=== PATIENT | female | born 1995 | race Caucasian/White ===

== ENCOUNTER → 2019-11-25 11:46 | Outpatient (CLI) | payer BC, SELFPAY ==
--- NOTE | ~2019-11-25 | XR_ITS ---
XR finger 1st RT min 2V DATE: 11/25/2019 12:11 INDICATION: Right thumb pain TECHNIQUE: 3 views COMPARISON: None FINDINGS: No fracture or dislocation, periosteal reaction or bone destruction. IMPRESSION: Negative Reviewed, dictated and finalized at location B. UP WORKER IMPRESSION: Negative
== END ==
PROVIDERS: PCP Physician Assistant; Visit Provider Physician Assistant
DX: M79.644 Pain in right finger(s) (principal)
CPT/HCPCS: 73140

== ENCOUNTER 2021-03-16 15:45 | Outpatient (RCR) | payer BC, SELFPAY ==
[2021-03-16 15:29] VITALS: BMI 26.8
== END 2021-06-05 11:29 | disposition home or self-care (01) ==
LOC: ANHDMC 15:45
PROVIDERS: PCP Family Medicine; Visit Provider Obstetrics & Gynecology
DX: O24.319 Unspecified pre-existing diabetes mellitus in pregnancy, unspecified trimester (principal); Z71.3 Dietary counseling and surveillance; Z71.89 Other specified counseling
CPT/HCPCS: 97802; G0108

== ENCOUNTER 2021-06-01 04:27 | Inpatient (IN) | payer BC, SELFPAY ==
[2021-06-01] VITALS (106 sets, daily range): BP systolic 89–135; BP diastolic 53–93; PULSE 53–289; RESP 18; TEMP 36.6–36.9; O2SAT 91–100; BMI 26.6
--- NOTE | 2021-06-01 04:49 | LDADM ---
This patient, Blossom Robles, was admitted to Labor/Delivery/Recovery 105 on 06/01/21 at 04:27. Plans for labor, pain management and were discussed with patient. Patient/family oriented to hospital policies and general routines including ID bracelet, bed and alarms, visiting hours, pain management, procedures, bathroom and other care routines, personal items, smoking policy, room service/diet and guest tray routines, security routines, and visiting hours. Patient/Family are encouraged to report perceived risks to care and to ask questions if they do not understand what they are told or what they should do. See OBIX for further documentation.
[2021-06-01 04:59] LABS: Basophils Percent Auto 0.2 % (0.2-1.2); Eosinophils Absolute Auto 0.1 K/mm3 (0-0.3); Eosinophils Percent Auto 0.7 % (0-4.4); Hematocrit 40.1 % (37.0-47.0); Hemoglobin 13.2 g/dL (12.0-15.0); Immature Granulocyte Absolute 0.05 K/mm3 (0.00-0.031); Immature Granulocyte Percent A 0.5 % (0-0.5); Lymphocytes Absolute Auto 2.17 K/mm3 (0.9-3.2); Lymphocytes Percent Auto 20.2 % (18.3-44.2); Mean Corpuscular HGB Conc 32.9 g/dl (32-36); Mean Corpuscular Hemoglobin 29.2 pg (26-34); Mean Corpuscular Volume 88.7 fl (80-100); Mean Platelet Volume 11.4 fl (7.4-10.4); Monocytes Absolute Auto 0.5 K/mm3 (0.1-0.6); Neutrophils Absolute Auto 7.9 K/mm3 (1.3-6.7); Neutrophils Percent Auto 73.4 % (45.5-73.1); Platelet Count Result 185 k/mm3 (150-375); Red Blood Count 4.52 M/mm3 (4.2-5.4); Red Cell Distribution Width 13.5 % (11.5-14.5); White Blood Count 10.8 K/mm3 (4.5-10.0)
[2021-06-01 05:04] LABS: Glucose Point of Care 85 mg/dl (65-105)
[2021-06-01] MEDS: OXYTOCIN 30 UNITS/NS 500 ML 30 UNITS/500 ML BAG 6 UNITS IV CONT (05:50)
[2021-06-01] MEDS: LACTATED RINGERS 1,000 ML 125 ML IV CONT ×3 (05:51→09:45)
--- NOTE | 2021-06-01 06:06 | PM.IMHP ---
H&P: HPI History of Present Illness Date/Time: 06/01/21 06:06 25-year-old 1 para 0 whose last menstrual period was 08/13/2020, EDC is 05/30 21, confirmed by 11 week ultrasound presents at term in active labor. She had an abnormal diabetic screen at 1:57 a.m. and was 2/4 abnormal was on her diabetic screen however she remained with excellent sugars with diet control. Chief Complaint: labor at term Review of Systems Review of Systems: All systems reviewed & are unremarkable except as noted in HPI and below PMFSH Family History Family History Mother Depression Grandparent Family history of malignant neoplasm of breast Social History Social History Smoking status: Never smoker Alcohol intake: never Substance use: never Gender identity (if verbalized by the patient): Female Spiritual care concerns: No Meds Home Medications and Allergies Home Medications Medication Instructions Recorded Confirmed Type venlafaxine 75 mg capsule,extended 75 mg PO DAILY #30 cap 03/29/21 05/04/21 Rx release 24 hr PNV cmb#95-ferrous fumarate-FA 1 tablet PO DAILY 05/04/21 05/04/21 History [] Allergies Allergy/AdvReac Type Severity Reaction Status Date / Time No Known Allergies Allergy Verified 03/21/21 14:40 Vital Signs Vital Signs - 24 hr 06/01/21 05:55 06/01/21 06:01 Pulse Rate 64 63 Blood Pressure 107/65 99/64 L Exam Const: General: no acute distress Eyes: General: appearance normal, both eyes and all related structures Neck: Neck: supple and no JVD Thyroid: thyroid normal Resp: Effort & Inspection: normal respiratory effort Auscultation: clear to auscultation bilaterally Cardio: Rate: regular rate Rhythm: regular rhythm GI: Inspection: non-distended GI Palp: Yes Soft to palpation, No Tenderness to palpation present (GI) and No Guarding due to palpation present (GI) Auscultation: normal bowel sounds : External Female Exam: normal external appearance Speculum Exam - Vagina: normal appearance of the vagina Speculum Exam - Cervix: normal appearance of the cervix ( Cervix 3/60/1. AROM with meconium. FHTs reassuring) Skin: General skin exam: no rashes or lesions noted Extrem: General: normal to inspection and no edema Psych: Mental Status: mental status grossly normal Affect: normal affect H&P: Results Labs Labs: Short CBC 06/01/21 Range/Units 04:50 WBC 10.8 H (4.5-10.0) K/mm3 Hgb 13.2 (12.0-15.0) g/dL Hct 40.1 (37.0-47.0) % Plt Count 185 (150-375) k/mm3 Assessment and Plan Additional Plan impression: Term in active labor with meconium fluid Plan: Spontaneous vaginal delivery is expected. She has an epidural candidate. Pediatrics will be made aware of the meconium
[2021-06-01 08:26] LABS: Glucose Point of Care 74 mg/dl (65-105)
[2021-06-01 08:36] LABS: Rapid Plasma Reagin Non-Reactive (NonReactive)
--- NOTE | 2021-06-01 08:49 | WPDANESEPP ---
Anes - Eval Pre Procedure Procedure: labor epidural Date/Time: 06/01/21 08:49 Preop Diagnosis: labor pain Pre Op Diagnosis: IOL Patient Data Age: 25 Gender: F Height: 1.68 m Weight: 75 kg Last Vital Signs Pulse 61 06/01/21 08:46 BP 106/57 L 06/01/21 08:46 Pulse Ox 100 06/01/21 08:45 Allergies Allergy/AdvReac Type Severity Reaction Status Date / Time No Known Allergies Allergy Verified 03/21/21 14:40 Home Medications Medication Instructions Recorded Confirmed Type venlafaxine 75 mg capsule,extended 75 mg PO DAILY #30 cap 03/29/21 05/04/21 Rx release 24 hr PNV cmb#95-ferrous fumarate-FA 1 tablet PO DAILY 05/04/21 05/04/21 History [] Laboratory Tests 06/01/21 06/01/21 06/01/21 04:50 04:50 04:50 WBC 10.8 K/mm3 H K/mm3 (4.5-10.0) RBC 4.52 M/mm3 M/mm3 (4.2-5.4) Hgb 13.2 g/dL g/dL (12.0-15.0) Hct 40.1 % % (37.0-47.0) MCV 88.7 fl fl (80-100) MCH 29.2 pg pg (26-34) MCHC 32.9 g/dl g/dl (32-36) RDW 13.5 % % (11.5-14.5) Plt Count 185 k/mm3 k/mm3 (150-375) MPV 11.4 fl H fl (7.4-10.4) Immature Gran % (Auto) 0.5 % % (0-0.5) Neut % (Auto) 73.4 % H % (45.5-73.1) Lymph % (Auto) 20.2 % % (18.3-44.2) Bent % (Auto) 5.0 % % (2.6-8.5) Eos % (Auto) 0.7 % % (0-4.4) Baso % (Auto) 0.2 % % (0.2-1.2) Lymph # (Auto) 2.17 K/mm3 K/mm3 (0.9-3.2) Bent # (Auto) 0.5 K/mm3 K/mm3 (0.1-0.6) Eos # (Auto) 0.1 K/mm3 K/mm3 (0-0.3) Baso # (Auto) 0.0 K/mm3 K/mm3 (0.0-0.1) Abs Immat Gran (auto) 0.05 K/mm3 H K/mm3 (0.00-0.031) Absolute Neuts (auto) 7.9 K/mm3 H K/mm3 (1.3-6.7) Absolute Nucleated RBC 0.0 K/mm3 K/mm3 (0.0-0.012) Nucleated RBC % 0.0 % % (0.0-0.2) POC Capillary Glucose RPR Non-reactive (NonReactive) Blood Type A Positive Antibody Screen Negative 06/01/21 06/01/21 04:58 08:05 WBC RBC Hgb Hct MCV MCH MCHC RDW Plt Count MPV Immature Gran % (Auto) Neut % (Auto) Lymph % (Auto) Bent % (Auto) Eos % (Auto) Baso % (Auto) Lymph # (Auto) Bent # (Auto) Eos # (Auto) Baso # (Auto) Abs Immat Gran (auto) Absolute Neuts (auto) Absolute Nucleated RBC Nucleated RBC % POC Capillary Glucose 85 mg/dl mg/dl 74 mg/dl mg/dl (65-105) (65-105) RPR Blood Type Antibody Screen Patient hx anesthesia problems: none Family hx anesthesia problems: none PMFSH Family History Family History Mother Depression Grandparent Family history of malignant neoplasm of breast Social History Social History Smoking status: Never smoker Alcohol intake: never Substance use: never Gender identity (if verbalized by the patient): Female Spiritual care concerns: No Exam Day of Procedure 06/01/21 08:49 Patient weight: normal Heart: regular rate and rhythm Lungs: normal air movement Airway: Mallampati scale class II Neurological: alert and oriented
[2021-06-01 11:16] LABS: Glucose Point of Care 74 mg/dl (65-105)
--- NOTE | 2021-06-01 13:04 | P.PCNOB_ITS ---
OB - Delivery Note Procedure Delivery date: 06/01/21 Intrapartal events: None Induction method: none Delivery augmentation: rupture of membranes and pitocin Delivery monitor: external FHT Route of delivery: Episiotomy description: None Laceration Description: None Specimen: No Quantitative Blood Loss (ml): 158 Anesthesia type: Epidural Disposition: floor [place] Baby Date of : 06/01/21 Time of : 12:52 Weeks of gestation at delivery: 40 Infant gender: Male Weight (pounds): 7 Weight (ounces): 10 presentation: vertex position: Right Occiput Anterior Placenta delivery description: Spontaneous cord vessel description: 3 Vessels score one minute: 9 score five minutes: 9 Narrative: mec fluid/peds present
[2021-06-01] MEDS: OXYTOCIN 30 UNITS/NS 500 ML 30 UNITS/500 ML BAG 125 UNITS IV CONT (13:32)
--- NOTE | 2021-06-01 15:45 | PC.NURSE ---
Patient transferred to post room #284 per wheelchair from labor and delivery. Support person present. Oriented to unit, room, information board, rooming in, admission packet and security measures. Patient verbalizes understanding.
[2021-06-01] MEDS: IBUPROFEN 600 MG TABLET PO (23:51)
[2021-06-01] MEDS: ACETAMINOPHEN 325 MG TABLET 650 MG PO (23:52)
[2021-06-02 03:44] VITALS: BP 115/78; PULSE 61; RESP 18; TEMP 36.6
[2021-06-02 05:19] LABS: Hematocrit 30.4 % (37.0-47.0); Hemoglobin 9.9 g/dL (12.0-15.0)
[2021-06-02 08:05] VITALS: BP 109/64; PULSE 82; RESP 18; TEMP 36.6; O2SAT 98
--- NOTE | 2021-06-02 08:52 | PM.DS ---
DS: Admitting Diagnosis Admitting Diagnosis term iup in labor DS: Summary Hospital Course Hospital Course: The patient was admitted in active labor and underwent spontaneous vaginal delivery. Her hospital course was unremarkable. She remained afebrile. She was up, voiding without difficulty, passing gas, eating regular diet and generally without complaints Time Spent with Patient Time attestation: Total time spent providing and/or coordinating discharge services: Exam Const: General: no acute distress Eyes: General: appearance normal, both eyes and all related structures Neck: Neck: supple and no JVD Thyroid: thyroid normal Resp: Effort & Inspection: normal respiratory effort Auscultation: clear to auscultation bilaterally Cardio: Rate: regular rate Rhythm: regular rhythm GI: Inspection: non-distended GI Palp: Yes Soft to palpation, No Tenderness to palpation present (GI) and No Guarding due to palpation present (GI) Auscultation: normal bowel sounds : General: Yes bladder normal to palpation External Female Exam: normal external appearance Speculum Exam - Vagina: normal vaginal discharge and No vaginal bleeding Speculum Exam - Cervix: nontender Bimanual exam- vagina & uterus: bladder normal to palpation and No Cervical tenderness present OB/external & speculum: No vaginal bleeding Skin: General skin exam: no rashes or lesions noted Extrem: General: normal to inspection and no edema Psych: Mental Status: mental status grossly normal Affect: normal affect DS: Data Data Completed and Pending Labs on day of discharge: Labs from last 24 hours 06/02/21 06/01/21 03:27 11:05 Hgb 9.9 L D Hct 30.4 L POC Capillary Glucose 74 Discharge Plan Discharge Attending physician on discharge: Zane Welch Discharging Clinician: Zane Welch Patient Disposition: Home, Self-Care Activity: may shower, no straining and pelvic rest Diet: heart healthy Wound Care Instructions: follow printed instructions Discharge Instructions: Education: Mom and Baby Guide Given to: Mother Follow-Up: Call your delivering provider's office for an appointment to be seen in: 6 Weeks Mom and baby should come to the [facility] for the follow-up appointment. Appointment Date/Time: June 05, 2021 at 9:00 am What to expect at your follow-up visit: Blood Pressure Check Physical Assessment Call [phone] if you are unable to keep your appointment time. BREAST CARE: * Wear a snug supportive bra. * For engorgement discomfort: Breast Feeding: * Apply warm moist washcloths * Express milk as needed to relieve engorgement * Wear loose clothing Bottle Feeding: * May apply ice packs * For sore nipples: * Identify correct latch-on * Apply warm moist washcloths before and after nursing * Air dry nipples after nursing * May apply Lansinoh cream to nipples EPISIOTOMY/PERINEAL CARE: * Until bleeding stops, use your kj bottle after urinating * Change your pad frequently throughout the day * You may take sitz baths several times a day (fill your bathtub with warm water and soak for 20 minutes.) Do NOT bathe in the water * No tub baths until seen by your physician - You may shower ACTIVITY: * Rest as much as possible. * Do not exercise or lift anything heavier than your baby (such as laundry or other children.) * Avoid stairs or driving as much as possible. * Do not put anything into the vagina. No douching, tampons, or sexual activity until seen by physician. NOTIFY PHYSICIAN IF YOU HAVE ANY QUESTIONS OR IF ANY OF THE FOLLOWING SYMPTOMS OCCUR: * If your vaginal area becomes red, swollen, or more painful than what you have experienced in the hospital. * If your vaginal bleeding becomes foul smelling. * If your vaginal bleeding becomes more heavy than a period or if your bleeding changes from p
[2021-06-02] MEDS: POLYSACCHARIDE IRON COMPLEX 150 MG CAPSULE PO ×2 (09:43→17:47)
[2021-06-02] MEDS: DOCUSATE SODIUM 100 MG CAPSULE PO ×2 (09:43→17:47)
[2021-06-02] MEDS: MULTIVIT/MIN/PREN/FOL AC/IRON TABLET 1 TAB PO (09:43)
[2021-06-02] MEDS: IBUPROFEN 600 MG TABLET PO ×2 (09:44→17:47)
[2021-06-02 11:49] VITALS: BP 115/77; PULSE 82; RESP 16; TEMP 36.6; O2SAT 99
--- NOTE | 2021-06-02 15:17 | WPDANLDPN2 ---
Anes-Prog Note L&D Date/Time: 06/02/21 15:17 Comfortable throughout: labor and delivery Neuraxial method: epidural Epidural/Spinal procedure site: erythematous Neuro status: Neuro function grossly intact. Cardiovascular status: normal Respiratory status: normal Airway patency: baseline Mental status: baseline Post-Op hydration status: normal Vital Signs: Last Vital Signs Temp 36.6 C 06/02/21 11:49 Pulse 82 06/02/21 11:49 Resp 16 06/02/21 11:49 BP 115/77 06/02/21 11:49 Pulse Ox 99 06/02/21 11:49 Pain score (VAS): 10/30 I/O: Intake & Output 06/01/21 06/02/21 06/02/21 23:59 07:59 15:59 Intake Total 500 Balance 500 Post-procedural complaints: none Patient feedback: Patient satisfied with anesthetic care.
[2021-06-02 19:05] VITALS: BP 112/70; PULSE 80; RESP 16; TEMP 36.3; O2SAT 100
--- NOTE | 2021-06-02 19:05 | PC.NURSE ---
Patient viewed the discharge video Mother & Baby Care, The First Two Weeks online. Patient was given the opportunity and encouraged to ask questions. Patient verbalized understanding of information shared and has been given the mother/baby guide for home reference.
--- NOTE | 2021-06-03 08:10 | PM.OBDSVD ---
DS: Admitting Diagnosis Admitting Diagnosis intrauterine at term labor OB - DS: Summary OB Procedures : None OB Procedures Intrapartum: Spontaneous Vag Delivery OB Procedures: : None Status at Discharge Functional status at discharge: independent ambulation Overall status at discharge: patient is back to baseline Time Spent with Patient Time attestation: Total time spent providing and/or coordinating discharge services: Time spent: Less than 30 minutes Exam Const: General: comfortable and no acute distress Resp: Effort & Inspection: normal respiratory effort Auscultation: clear to auscultation bilaterally Cardio: Rate: regular rate GI: GI Palp: Yes Soft to palpation Auscultation: normal bowel sounds Other: Fundus firm below umbilicus Psych: Appearance: grossly normal Mental Status: mental status grossly normal Affect: normal affect Discharge Plan Discharge Attending physician on discharge: Zane Welch Discharging Clinician: Zane Welch Patient Disposition: Home, Self-Care Activity: may shower, no straining and pelvic rest Diet: heart healthy Wound Care Instructions: follow printed instructions Patient Instructions: Antibiotic Form Stand Alone Forms: General Discharge Information Follow-up/Referrals: Zane Welch MD [Physician] - Discharge Medications: New polysaccharide iron complex 150 mg iron Capsule 150 mg PO BIDWM Qty: 60 RF: 0 acetaminophen [Mapap (acetaminophen)] 325 mg Tablet 650 mg PO Q6H PRN (Reason: Mild Pain (1-3) Or Headache) Qty: 30 RF: 0 ibuprofen 600 mg Tablet 600 mg PO Q6H PRN (Reason: Cramping) Qty: 30 RF: 0 Continued PNV cmb#95-ferrous fumarate-FA [] 28 mg iron- 800 mcg Tablet 1 tablet PO DAILY RF: 0 venlafaxine [Effexor XR] 75 mg capsule,extended release 24hr 75 mg PO DAILY Qty: 30 RF: 1 Date of admission: 06/01/21 04:27 Primary Care Provider: Kenneth Pritchard Admitting Provider: Zane Welch Attending physician on admission: Zane Welch Condition: Stable
[2021-06-03 09:13] VITALS: BP 121/83; PULSE 66; RESP 16; TEMP 36.8; O2SAT 100
[2021-06-03] MEDS: POLYSACCHARIDE IRON COMPLEX 150 MG CAPSULE PO (12:22)
[2021-06-03] MEDS: IBUPROFEN 600 MG TABLET PO (12:22)
[2021-06-03] MEDS: DOCUSATE SODIUM 100 MG CAPSULE PO (12:22)
[2021-06-03] MEDS: MULTIVIT/MIN/PREN/FOL AC/IRON TABLET 1 TAB PO (12:22)
[2021-06-03 12:35] VITALS: PULSE 66; RESP 16; O2SAT 100
[2021-06-05 08:43] VITALS: BP 123/83; PULSE 65; RESP 16; TEMP 36.9; O2SAT 100
== END 2021-06-03 13:10 | disposition home or self-care (01) | DRG 807 ==
LOC: ANHLDR 08:49 → ANHOB2 06-02 08:53 → ANHLDR 06-05 11:36 → ANHOB2 06-05 11:36
PROVIDERS: Admitting Provider Obstetrics & Gynecology; PCP Family Medicine; Visit Provider Student in an Organized Health Care Education/Training Program
DX: O24.420 Gestational diabetes mellitus in childbirth, diet controlled (principal); Z37.0 Single live birth; Z3A.40 40 weeks gestation of pregnancy; O77.0 Labor and delivery complicated by meconium in amniotic fluid
CPT/HCPCS: 36415; 82948; 85014; 85018; 85025; 86592; 86850; 86900; 86901; A9270; J2590; J2795; J7120

== ENCOUNTER 2022-12-11 07:33 | Inpatient (IN) | payer BC, SELFPAY ==
[2022-12-11] VITALS (119 sets, daily range): BP systolic 73–171; BP diastolic 20–117; PULSE 54–119; RESP 16; TEMP 36.6–36.8; O2SAT 92–100; BMI 27.7
[2022-12-11] MEDS: LACTATED RINGERS 1,000 ML 125 ML IV CONT ×2 (08:20→08:54)
[2022-12-11 08:27] LABS: Glucose Point of Care 68 mg/dl (65-105)
[2022-12-11 08:30] LABS: Basophils Percent Auto 0.5 % (0.2-1.2); Eosinophils Absolute Auto 0.1 K/mm3 (0-0.3); Eosinophils Percent Auto 0.8 % (0-4.4); Hematocrit 32.2 % (37.0-47.0); Hemoglobin 10.1 g/dL (12.0-15.0); Immature Granulocyte Absolute 0.06 K/mm3 (0.00-0.031); Immature Granulocyte Percent A 0.9 % (0-0.5); Lymphocytes Absolute Auto 1.81 K/mm3 (0.9-3.2); Lymphocytes Percent Auto 27.8 % (18.3-44.2); Mean Corpuscular HGB Conc 31.4 g/dl (32-36); Mean Corpuscular Hemoglobin 25.5 pg (26-34); Mean Corpuscular Volume 81.3 fl (80-100); Mean Platelet Volume 10.4 fl (7.4-10.4); Monocytes Absolute Auto 0.3 K/mm3 (0.1-0.6); Monocytes Percent Auto 4.6 % (2.6-8.5); Neutrophils Absolute Auto 4.3 K/mm3 (1.3-6.7); Neutrophils Percent Auto 65.4 % (45.5-73.1); Platelet Count Result 176 k/mm3 (150-375); Red Blood Count 3.96 M/mm3 (4.2-5.4); Red Cell Distribution Width 14.6 % (11.5-14.5); White Blood Count 6.5 K/mm3 (4.5-10.0)
--- NOTE | 2022-12-11 08:52 | WPDANESEPP ---
Anes - Eval Pre Procedure Procedure: labor pain managment Date/Time: 12/11/22 08:52 Surgeon: Machelle Preop Diagnosis: pain during labor Pre Op Diagnosis: Contractions Patient Data Age: 27 Gender: F Height: 1.68 m Weight: 78 kg Last Vital Signs Pulse 74 12/11/22 08:45 BP 133/94 H 12/11/22 08:45 Pulse Ox 100 12/11/22 08:52 O2 Del Method Room Air 12/11/22 08:29 Allergies Allergy/AdvReac Type Severity Reaction Status Date / Time No Known Allergies Allergy Verified 09/24/22 13:57 Home Medications Medication Instructions Recorded Confirmed Type prenat.vits,jass,fyn-pyjj-zxunf 1 tablet PO DAILY 09/24/22 12/11/22 History venlafaxine 75 mg capsule,extended 75 mg PO DAILY #90 caps 09/24/22 12/11/22 Rx release 24 hr (Effexor XR) Laboratory Tests 12/11/22 12/11/22 12/11/22 08:22 08:22 08:23 WBC 6.5 K/mm3 K/mm3 (4.5-10.0) RBC 3.96 M/mm3 L M/mm3 (4.2-5.4) Hgb 10.1 g/dL L g/dL (12.0-15.0) Hct 32.2 % L % (37.0-47.0) MCV 81.3 fl fl (80-100) MCH 25.5 pg L pg (26-34) MCHC 31.4 g/dl L g/dl (32-36) RDW 14.6 % H % (11.5-14.5) Plt Count 176 k/mm3 k/mm3 (150-375) MPV 10.4 fl fl (7.4-10.4) Immature Gran % (Auto) 0.9 % H % (0-0.5) Neut % (Auto) 65.4 % % (45.5-73.1) Lymph % (Auto) 27.8 % % (18.3-44.2) [place] % (Auto) 4.6 % % (2.6-8.5) Eos % (Auto) 0.8 % % (0-4.4) Baso % (Auto) 0.5 % % (0.2-1.2) Lymph # (Auto) 1.81 K/mm3 K/mm3 (0.9-3.2) [place] # (Auto) 0.3 K/mm3 K/mm3 (0.1-0.6) Eos # (Auto) 0.1 K/mm3 K/mm3 (0-0.3) Baso # (Auto) 0.0 K/mm3 K/mm3 (0.0-0.1) Abs Immat Gran (auto) 0.06 K/mm3 H K/mm3 (0.00-0.031) Absolute Neuts (auto) 4.3 K/mm3 K/mm3 (1.3-6.7) Absolute Nucleated RBC 0.0 K/mm3 K/mm3 (0.0-0.012) Nucleated RBC % 0.0 % % (0.0-0.2) POC Capillary Glucose 68 mg/dl mg/dl (65-105) RPR Pending Patient hx anesthesia problems: none Family hx anesthesia problems: none Prior surgeries: wisdom teeth Results Review: All pre-operative results and documents have been reviewed as part of the pre-operative evaluation. [facility] Family History Family History Mother Depression Grandparent Family history of malignant neoplasm of breast Social History Social History Smoking status: Never smoker Alcohol intake: never Substance use: never Lack of Transportation: No Lack of Food: Never True Current Housing: I Have Housing Concerned About Future Housing: No Difficulty Paying Gas/Electric Bills: No Difficulty Paying for Meds: No Currently Unemployed: No Education: Bachelor's Degree Difficulty w/ Childcare or Family Care: No Gender identity (if verbalized by the patient): Female Spiritual care concerns: No Exam Day of Procedure 12/11/22 08:52
[2022-12-11 10:35] LABS: Rapid Plasma Reagin Non-Reactive (NonReactive)
[2022-12-11 10:56] LABS: Glucose Point of Care 65 mg/dl (65-105)
--- NOTE | 2022-12-11 11:43 | PM.IMHP ---
H&P: HPI History of Present Illness Date/Time: 12/11/22 11:43 Chief Complaint: Active labor at term Narrative: 27-year-old 2 para 1 whose last menstrual period was 04/06/2022, EDC is 12/18/2022, presents at39+ weeks gestation in active labor. She is a gestational diabetic and has been controlled with diet control. She is negative for group B strep. She does take venlafaxine 75mg daily. She spontaneously ruptured after admission PMFSH Family History Family History Mother Depression Grandparent Family history of malignant neoplasm of breast Social History Social History Smoking status: Never smoker Alcohol intake: never Substance use: never Lack of Transportation: No Lack of Food: Never True Current Housing: I Have Housing Concerned About Future Housing: No Difficulty Paying Gas/Electric Bills: No Difficulty Paying for Meds: No Currently Unemployed: No Education: Bachelor's Degree Difficulty w/ Childcare or Family Care: No Gender identity (if verbalized by the patient): Female Spiritual care concerns: No Meds Home Medications and Allergies Home Medications Medication Instructions Recorded Confirmed Type prenat.vits,jass,bso-qpcf-csffq 1 tablet PO DAILY 09/24/22 12/11/22 History venlafaxine 75 mg capsule,extended 75 mg PO DAILY #90 caps 09/24/22 12/11/22 Rx release 24 hr (Effexor XR) Allergies Allergy/AdvReac Type Severity Reaction Status Date / Time No Known Allergies Allergy Verified 09/24/22 13:57 Vital Signs Vital Signs - 24 hr 12/11/22 08:29 12/11/22 08:30 12/11/22 08:45 Pulse Rate 66 74 Blood Pressure 118/73 133/94 H Pulse Oximetry Oxygen Delivery Room Air 12/11/22 08:52 12/11/22 08:57 12/11/22 09:00 Pulse Rate 71 Blood Pressure 135/87 Pulse Oximetry 100 100 Oxygen Delivery 12/11/22 09:02 12/11/22 09:04 12/11/22 09:05 Pulse Rate 69 Blood Pressure 132/83 Pulse Oximetry 100 100 Oxygen Delivery 12/11/22 09:06 12/11/22 09:08 12/11/22 09:10 Pulse Rate 65 84 Blood Pressure 132/83 133/89 Pulse Oximetry 100 Oxygen Delivery 12/11/22 09:11 12/11/22 09:13 12/11/22 09:15 Pulse Rate 64 54 L Blood Pressure 84/45 L 73/40 L Pulse Oximetry 100 Oxygen Delivery 12/11/22 09:16 12/11/22 09:17 12/11/22 09:19 Pulse Rate 57 L 107 H 104 H Blood Pressure 141/101 H 119/74 102/36 L Pulse Oximetry Oxygen Delivery 12/11/22 09:20 12/11/22 09:23 12/11/22 09:24 Pulse Rate 102 H 101 H 97 Blood Pressure 88/54 L 171/117 H 168/100 H Pulse Oximetry 100 Oxygen Delivery 12/11/22 09:25 12/11/22 09:26 12/11/22 09:28 Pulse Rate 101 H 108 H 118 H Blood Pressure 137/78 126/70 144/89 H Pulse Oximetry 98 Oxygen Delivery 12/11/22 09:30 12/11/22 09:31 12/11/22 09:33 Pulse Rate 118 H 114 H Blood Pressure 89/45 L 80/33 L Pulse Oximetry 100 Oxygen Delivery 12/11/22 09:35 12/11/22 09:38 12/11/22 09:40 Pulse Rate 103 H 105 H 98 Blood Pressure 97/42 L 94/29 L 97/66 L Pulse Oximetry 100 100 Oxygen Delivery 12/11/22 09:43 12/11/22 09:45 12/11/22 09:48 Pulse Rate 75 103 H 109 H Blood Pressure 126/67 105/68 92/60 L Pulse Oximetry 100 Oxygen Delivery 12/11/22 09:50 12/11/22 09:53 12/11/22 09:55 Pulse Rate 94 69 74 Blood Pressure 104/66 124/76 130/82 Pulse Oximetry 100 99 Oxygen Delivery 12/11/22 09:58 12/11/22 10:00 12/11/22 10:03 Pulse Rate 81 108 H 94 Blood Pressure 136/84 108/68 110/69 Pulse Oximetry 99 Oxygen Delivery 12/11/22 10:05 12/11/22 10:08 12/11/22 10:10 Pulse Rate 116 H 104 H 90 Blood Pressure 77/44 L 81/46 L 101/60 Pulse Oximetry 92 100 Oxygen Delivery 12/11/22 10:13 12/11/22 10:15 12/11/22 10:20 Pulse Rate 70 90 Blood Pressure 120/75 107/68 Pulse Oximetry 100 100 Oxygen Delivery
[2022-12-11] MEDS: OXYTOCIN 30 UNITS/NS 500 ML 30 UNITS/500 ML BAG 999 UNITS IV CONT (14:44)
--- NOTE | 2022-12-11 15:18 | P.PCNOB_ITS ---
OB - Delivery Note Procedure Delivery date: 12/11/22 Induction method: None Delivery monitor: External FHT and External Uterine Route of delivery: Episiotomy description: None Laceration Description: None Specimen: No Quantitative Blood Loss (ml): 60 Anesthesia type: Epidural Disposition: Floor [place] Baby Date of : 12/11/22 Time of : 15:08 Weeks of gestation at delivery: 39 gender: Male Weight (pounds): 8 Weight (ounces): 12 presentation: vertex position: Right Occiput Anterior Placenta delivery description: Spontaneous Cord Vessel Description: 3 Vessels and Delayed Cord Clamping score one minute: 7 score five minutes: 9
[2022-12-11] MEDS: OXYTOCIN 30 UNITS/NS 500 ML 30 UNITS/500 ML BAG 125 UNITS IV CONT (15:46)
[2022-12-11] MEDS: BENZOCAINE 20% AER SPR (*SP) 56 GM CAN 1 SPRAY TOPICAL (17:34)
[2022-12-11] MEDS: WITCH HAZEL 40 PADS 1 PAD TOPICAL (17:34)
--- NOTE | 2022-12-11 17:40 | PC.NURSE ---
Patient transferred to post room #284 via wheelchair. Support person present. Oriented to unit, room, information board, rooming in, admission packet and security measures. Patient verbalizes understanding.
[2022-12-12] MEDS: ACETAMINOPHEN 325 MG TABLET 650 MG PO (00:32)
[2022-12-12 05:29] LABS: Hematocrit 30.9 % (37.0-47.0); Hemoglobin 9.4 g/dL (12.0-15.0)
[2022-12-12 07:50] VITALS: BP 125/89; PULSE 58; RESP 16; TEMP 36.4; O2SAT 99
--- NOTE | 2022-12-12 07:50 | PM.DS ---
DS: Admitting Diagnosis Discharge Date 12/12/2022 Admitting Diagnosis term /gestational diabetes diet controlled DS: Discharge Diagnosis Discharge Diagnosis (1) Gestational diabetes: Code(s): O24.419 - Gestational diabetes mellitus in , unspecified control Status: Acute (2) Term : Code(s): Z34.90 - Encounter for supervision of normal , unspecified, unspecified trimester Status: Acute DS: Summary Hospital Course Reason for hospitalization: active labor at term Hospital Course: patient was admitted in active labor on 12/11/2022. She underwent spontaneous vaginal delivery with epidural anesthesia. Her hospital course was unremarkable as her sugars remained within normal limits. She was up, voiding without difficulty ambulating, generally without complaints. Time Spent with Patient Time attestation: Total time spent providing and/or coordinating discharge services: Exam Const: General: cooperative, healthy appearing and comfortable Nutritional Appearance: average body habitus Orientation/consciousness: oriented to person, oriented to place and oriented to time Resp: Effort & Inspection: normal respiratory effort Cardio: Rate: regular rate Rhythm: regular rhythm Heart sounds: S1 normal heart sound present and S2 normal heart sound present GI: Inspection: normal to inspection ( Fundus firm below the umbilicus) DS: Data Data Completed and Pending Labs on day of discharge: Labs from last 24 hours 12/12/22 12/11/22 12/11/22 05:16 10:52 08:23 WBC RBC Hgb 9.4 L Hct 30.9 L MCV MCH MCHC RDW Plt Count MPV Immature Gran % (Auto) Neut % (Auto) Lymph % (Auto) [place] % (Auto) Eos % (Auto) Baso % (Auto) Lymph # (Auto) [place] # (Auto) Eos # (Auto) Baso # (Auto) Abs Immat Gran (auto) Absolute Neuts (auto) Absolute Nucleated RBC Nucleated RBC % POC Capillary Glucose 65 68 RPR Blood Type Antibody Screen 12/11/22 12/11/22 12/11/22 08:22 08:22 08:22 WBC 6.5 RBC 3.96 L Hgb 10.1 L Hct 32.2 L MCV 81.3 MCH 25.5 L MCHC 31.4 L RDW 14.6 H Plt Count 176 MPV 10.4 Immature Gran % (Auto) 0.9 H Neut % (Auto) 65.4 Lymph % (Auto) 27.8 [place] % (Auto) 4.6 Eos % (Auto) 0.8 Baso % (Auto) 0.5 Lymph # (Auto) 1.81 [place] # (Auto) 0.3 Eos # (Auto) 0.1 Baso # (Auto) 0.0 Abs Immat Gran (auto) 0.06 H Absolute Neuts (auto) 4.3 Absolute Nucleated RBC 0.0 Nucleated RBC % 0.0 POC Capillary Glucose RPR Non-reactive Blood Type A Positive Antibody Screen Negative Discharge Plan Discharge Attending physician on discharge: Zane Bernal Discharging Clinician: Zane Bernal Patient Disposition: Home, Self-Care Activity: may shower and pelvic rest Diet: heart healthy Wound Care Instructions: follow printed instructions Patient Instructions: Antibiotic Form Stand Alone Forms: General Discharge Information Follow-up/Referrals: Zane Bernal MD [Physician] - Discharge Medications: Continued prenat.vits,jass,[id number] Tablet 1 tablet PO DAILY venlafaxine [Effexor XR] 75 mg capsule,extended release 24hr 75 mg PO DAILY Qty: 90 3RF Date of admission: 12/11/22 07:33 Primary Care Provider: Car Engel Admitting Provider: Zane Bernal Attending physician on admission: Zane Bernal Condition: Stable
--- NOTE | 2022-12-12 07:53 | PM.OBPNVD ---
OB - PN: Subj Subjective Date/time seen: 12/12/22 07:53 Patient comments: no complaints and pain well controlled baby status: doing well and nursing well OB - PN: Obj Data Labs 12/12/22 05:16 Labs: Laboratory Results - last 24 hr 12/11/22 12/11/22 12/11/22 08:22 08:22 08:22 WBC 6.5 RBC 3.96 L Hgb 10.1 L Hct 32.2 L MCV 81.3 MCH 25.5 L MCHC 31.4 L RDW 14.6 H Plt Count 176 MPV 10.4 Immature Gran % (Auto) 0.9 H Neut % (Auto) 65.4 Lymph % (Auto) 27.8 [place] % (Auto) 4.6 Eos % (Auto) 0.8 Baso % (Auto) 0.5 Lymph # (Auto) 1.81 [place] # (Auto) 0.3 Eos # (Auto) 0.1 Baso # (Auto) 0.0 Abs Immat Gran (auto) 0.06 H Absolute Neuts (auto) 4.3 Absolute Nucleated RBC 0.0 Nucleated RBC % 0.0 POC Capillary Glucose RPR Non-reactive Blood Type A Positive Antibody Screen Negative 12/11/22 12/11/22 12/12/22 08:23 10:52 05:16 WBC RBC Hgb 9.4 L Hct 30.9 L MCV MCH MCHC RDW Plt Count MPV Immature Gran % (Auto) Neut % (Auto) Lymph % (Auto) [place] % (Auto) Eos % (Auto) Baso % (Auto) Lymph # (Auto) [place] # (Auto) Eos # (Auto) Baso # (Auto) Abs Immat Gran (auto) Absolute Neuts (auto) Absolute Nucleated RBC Nucleated RBC % POC Capillary Glucose 68 65 RPR Blood Type Antibody Screen OB - PN A/P Plan day: 1 Plan: routine care, discharge home and follow up 6 weeks Time Spent With Patient Time: Total time spent is greater than 50% in coordination of care (as documented) at patient's floor/unit and/or counseling patient: Time with patient: less than 15 minutes Exam Const: General: cooperative, healthy appearing and comfortable Nutritional Appearance: average body habitus Orientation/consciousness: oriented to person, oriented to place and oriented to time Resp: Effort & Inspection: normal respiratory effort Cardio: Rate: regular rate Rhythm: regular rhythm Heart sounds: S1 normal heart sound present and S2 normal heart sound present GI: Inspection: normal to inspection ( fundus firm below the umbilicus)
[2022-12-12] MEDS: IBUPROFEN 600 MG TABLET PO ×2 (08:00→17:50)
[2022-12-12] MEDS: MULTIVIT/MIN/PREN/FOL AC/IRON TABLET 1 TAB PO (08:00)
[2022-12-12] MEDS: DOCUSATE SODIUM 100 MG CAPSULE PO ×2 (08:00→17:50)
[2022-12-12] MEDS: POLYSACCHARIDE IRON COMPLEX 150 MG CAPSULE PO ×2 (08:00→17:50)
[2022-12-12 09:00] VITALS: PULSE 58; RESP 16; O2SAT 99
[2022-12-12 11:35] VITALS: BP 125/85; PULSE 74; RESP 18; TEMP 36.9; O2SAT 97
--- NOTE | 2022-12-12 12:28 | PC.NURSE ---
[id number] Introductions were made, then consulted with patient to assess needs related to . Mother led the conversation with her?plans to feed?her , the?experience so far and that she is attempting to breastfeed, pumping and supplementing for combination feeding. She states she did not have good success with her first child and bottle fed. Resources provided for inpatient and outpatient services with the feeding sheet, mom/baby guide and name written on the white board. Mother voiced understanding of information and consent to assistance since her infant is sleepy and reluctant to wake and breastfeed. Mother works well with her with encouragement and education. Encouraged understanding of the benefits of skin to skin (demonstrating unwrapping and placing upright on her chest), stimulating with massage touch, changing positions to encourage wakefulness, how to watch for early feeding cues, responsive feeding, feeding on demand (aiming for 8-12 times in 24 hours, about every 2-3 hours), milk production, building/maintaining a milk supply, duration of feeding, signs of adequate intake/output and how to record on the feeding sheet. After practicing techniques to wake for and feeding cues were visualized, then was moved to the right breast using the cross cradle hold. Reviewed positioning and ear, shoulder, hip alignment, supporting the breast to facilitate a deep latch, asymmetrical latch (off-center), leading with the chin with a big, open, wide gape and body close to mother. Infant latched optimally to the right breast in cross cradle position after a few shallow latches to the nipple. Education given to mother of how to visualize suck/swallow ratios and listen for drinking at the breast. Encouraged mother to wait for the big, open, wide gape and bring to the breast chin buried with an off-center approach. was able to maintain latch without discomfort to mother. Nipple care reviewed with optimal latch and good positioning. Reviewed good handwashing when or touching the breast/nipples to prevent infection. [id number] After measuring mothers nipple diameter the flange size was decreased to 21mm. Breast pump provided prior to meeting related to shallow latching was reported. Instructions given on cleaning, care, usage, that there should be no pain, pumping schedule for milk production, collection, and storage of human milk. Mother is encouraged to record pumping schedule on the feeding sheet. Patient was assessed for correct placement, flange size, to pump for comfort and nipple stretching/stimulation for adequate milk production every 3 hours (8 times in 24 hours) 1-2 times at night. Resources used to facilitate learning were used with the visual handouts, QR codes, tool, mom and baby guide. Mother voiced understanding of skin to skin, stimulating with massage touch, responsive feedings, talking to to encourage if it has been 2 -2.5 hours since the start of the last , to call if infant does not latch, or if there is discomfort with . Resources provided for inpatient/outpatient with feeding sheet and the mom/baby guide. Mother voiced understanding of information, demonstrated learning and will call if there is a request for assistance. Reported to the primary RN.
[2022-12-12 13:00] VITALS: PULSE 74; RESP 18; O2SAT 97
--- NOTE | 2022-12-12 14:15 | WPDANLDPN2 ---
Anes-Prog Note L&D Date/Time: 12/12/22 14:15 Neuro status: Neuro function grossly intact. Vital Signs: Last Vital Signs Temp 36.9 C 12/12/22 11:35 Pulse 74 12/12/22 11:35 Resp 18 12/12/22 11:35 BP 125/85 12/12/22 11:35 Pulse Ox 97 12/12/22 11:35 O2 Del Method Room Air 12/12/22 09:00 Pain score (VAS): 0 I/O: Intake & Output 12/11/22 12/12/22 12/12/22 23:59 07:59 15:59 Intake Total 1300 500 Balance 1300 500 Patient feedback: Patient satisfied with anesthetic care.
[2022-12-12 19:07] VITALS: BP 131/85; PULSE 53; RESP 16; TEMP 36.3
[2022-12-13] MEDS: DOCUSATE SODIUM 100 MG CAPSULE PO (07:22)
[2022-12-13] MEDS: POLYSACCHARIDE IRON COMPLEX 150 MG CAPSULE PO (07:23)
[2022-12-13] MEDS: MULTIVIT/MIN/PREN/FOL AC/IRON TABLET 1 TAB PO (07:23)
--- NOTE | 2022-12-13 07:32 | PC.NURSE ---
Patient viewed the discharge video Mother & Baby Care, The First Two Weeks . Patient was given the opportunity and encouraged to ask questions. Patient verbalized understanding of information shared and has been given the mother/baby guide for home reference.
--- NOTE | 2022-12-13 07:39 | PM.OBPNVD ---
OB - PN: Subj Subjective Date/time seen: 12/13/22 07:39 Patient comments: no complaints and pain well controlled baby status: doing well and nursing well OB - PN: Obj Data Labs 12/12/22 05:16 OB - PN A/P Plan Plan: routine care, discharge home and follow up 6 weeks Time Spent With Patient Time: Total time spent is greater than 50% in coordination of care (as documented) at patient's floor/unit and/or counseling patient: Time with patient: less than 15 minutes Exam Const: General: cooperative, healthy appearing and comfortable Nutritional Appearance: average body habitus Orientation/consciousness: oriented to person, oriented to place and oriented to time Resp: Effort & Inspection: normal respiratory effort Cardio: Rate: regular rate Rhythm: regular rhythm Heart sounds: S1 normal heart sound present and S2 normal heart sound present GI: Inspection: normal to inspection
[2022-12-13 08:05] VITALS: BP 139/82; PULSE 53; RESP 16; TEMP 36.7; O2SAT 98
--- NOTE | 2022-12-13 14:48 | PC.NURSE ---
Report received from Kianna this morning is mother is consistently pumping and bottle feeding.
[2022-12-14 11:13] VITALS: BP 148/88; PULSE 56; RESP 18; TEMP 36.3; O2SAT 100
== END 2022-12-13 11:30 | disposition home or self-care (01) | DRG 807 ==
LOC: ANHLDR 08:12 → ANHOB2 17:43
PROVIDERS: Admitting Provider Obstetrics & Gynecology; PCP Physician Assistant; Visit Provider Obstetrics & Gynecology
DX: O24.420 Gestational diabetes mellitus in childbirth, diet controlled (principal); Z37.0 Single live birth; Z3A.39 39 weeks gestation of pregnancy
CPT/HCPCS: 36415; 82948; 85014; 85018; 85025; 86592; 86850; 86900; 86901; A9270; J2590; J2795; J7120